=== PATIENT | female | born 1945 | race Caucasian/White ===

== ENCOUNTER 2018-09-04 20:22 | Inpatient (IN) | payer OTHER ==
[2018-09-04 20:56] LABS: PLATELET COUNT 245 10^3/uL (150-400)
[2018-09-04] MEDS ORDERED: ASPIRIN 81 MG CHEWABLE TAB PO ONE (21:02)
--- NOTE | 2018-09-04 21:05 | EDPHY ---
H & P Stated Complaint: chest pain Time Seen by Provider: 09/04/18 20:51 HPI/ROS: CHIEF COMPLAINT: Chest pain HISTORY OF PRESENT ILLNESS: 73-year-old female with history of CABG presents with chest pain. Onset of substernal chest pain at 8:00 p.m.. The pain lasted 30 min and then completely resolved. The pain radiated to the jaw and was similar to prior heart attack. No associated shortness of breath, diaphoresis or other symptoms. She recently stopped taking all of her medications. She did not take an aspirin today. REVIEW OF SYSTEMS: complete 10 point ROS reviewed and is negative except for the noted elements in the HPI - Personal History Current Tetanus/Diphtheria Vaccine: Yes Current Tetanus Diphtheria and Acellular Pertussis (TDAP): Yes - Medical/Surgical History Hx Asthma: No Hx Chronic Respiratory Disease: No Hx Diabetes: No Hx Cardiac Disease: Yes Hx Renal Disease: No Hx Cirrhosis: No Hx Alcoholism: No Hx HIV/AIDS: No Hx Splenectomy or Spleen Trauma: No Other PMH: bypass - Social History Smoking Status: Never smoked - Physical Exam Exam: General Appearance: Alert, pleasant Eyes: Pupils equal and round, no conjunctival pallor ENT, Mouth: Mucous membranes moist Neck: Normal inspection Respiratory: Lungs are clear to auscultation Cardiovascular: Regular rate and rhythm Gastrointestinal: Abdomen is soft and nontender Neurological: A&O, nonfocal, normal gait Skin: Warm and dry, no rash Extremities: Nontender, no pedal edema Psychiatric: Mood and affect normal Constitutional: Initial Vital Signs Temperature (C) 36.8 C 09/04/18 20:26 Heart Rate 77 09/04/18 20:26 Respiratory Rate 18 09/04/18 20:26 O2 Sat (%) 95 09/04/18 20:26 O2 Delivery Mode Room Air Allergies/Adverse Reactions: droperidol [From Inapsine] Allergy (Verified 09/04/18 20:44) Penicillins Allergy (Verified 09/04/18 20:44) Home Medications: Medication Instructions Recorded Losartan Potassium [Cozaar 25 mg 25 mg PO DAILY 09/04/18 (*)] Medical Decision Making - Diagnostics EKG Interpretation: EKG interpreted by me reveals normal sinus rhythm, rate 81, inferior Q-waves, poor R-wave progression, diffuse nonspecific T-wave changes. Interpretation: Abnormal EKG Imaging Results: Imaging Impressions Chest X-Ray 09/04/18 21:03 Impression: 1. Cardiomegaly. No acute failure or fluid overload. 2. Mild airways disease and minimal left basilar atelectasis/scarring. Imaging: I viewed and interpreted images myself ED Course/Re-evaluation: This patient presents with chest pain. Known history of coronary artery disease and prior CABG. Stat EKG reveals no evidence of ischemia or dysrhythmia and initial troponin is normal. She will require admission for further cardiac evaluation. The hospitalist service was consulted for admission. telemetry monitor revealed normal sinus rhythm throughout. I do not suspect alternative etiology. Differential Diagnosis: Differential diagnosis includes though it is not limited to pneumonia, pneumothorax, pulmonary embolism, aortic dissection, pericarditis, acute coronary syndrome. - Data Points Laboratory Results: Laboratory Results 09/04/18 20:35 09/04/18 20:35 09/04/18 09/04/18 09/04/18 20:42 20:35 20:35 WBC 7.11 10^3/uL 10^3/uL (3.80-9.50) RBC 4.78 10^6/uL 10^6/uL (4.18-5.33) Hgb 15.2 g/dL g/dL (12.6-16.3) Hct 44.7 % % (38.0-47.0) MCV 93.5 fL fL (81.5-99.8) MCH 31.8 pg pg (27.9-34.1) MCHC 34.0 g/dL g/dL (32.4-36.7) RDW 12.1 % % (11.5-15.2) Plt Count 245 10^3/uL 10^3/uL (150-400) MPV 11.7 fL fL (8.7-11.7) Neut % (Auto) 67.9 % % (39.3-74.2) Lymph % (Auto) 19.1 % % (15.0-45.0) [place] % (Auto) 7.2 % % (4.5-13.0) Eos % (Auto) 4.6 % % (0.6-7.6) Baso % (Auto) 0.8 % % (0.3-1.7) Nucleat RBC Rel Count 0.0 % % (0.0-0.2) Absolute Neuts (auto) 4.82 10^3/uL 10^3/uL (1.70-6.50) Absolute Lymphs (auto) 1.36 10^3/uL 10^3/uL (1.00-3.00) Absolute Monos (auto) 0.51 10^3/uL 10^3/uL (0.30-0.80) Absolute Eos (auto) 0.33 10^3/uL 10^3/uL (0.03-0.40) Absolute Basos (auto) 0.06 10^3/uL 10^3/uL (0.02-0.10) Absolute Nucleated RBC 0.00 10^3/uL 10^3/uL (0-0.01) Immature Gran % 0.4 % % (0.0-1.1) Immature Gran # 0.03 10^3/uL 10^3/uL (0.00-0.10) Sodium 137 mEq/L mEq/L (135-145) Potassium 4.2 mEq/L mEq/L (3.5-5.2) Chloride 103 mEq/L mEq/L (97-110) Carbon Dioxide 24 mEq/l mEq/l (22-31) Anion Gap 10 mEq/L mEq/L (6-14) BUN 20 mg/dL mg/dL (7-23) Creatinine 1.0 mg/dL mg/dL (0.6-1.0) Estimated GFR 55 Glucose 94 mg/dL mg/dL (70-100) Calcium 10.1 mg/dL mg/dL (8.5-10.4) Total Bilirubin 1.0 mg/dL mg/dL (0.1-1.4) AST 26 IU/L IU/L (14-46) ALT 34 IU/L IU/L (9-52) Alkaline Phosphatase 104 IU/L IU/L (38-126) POC Troponin I 0.00 ng/mL ng/mL (0.00-0.08) Total Protein 7.6 g/dL g/dL (6.3-8.2) Albumin 4.7 g/dL g/dL (3.5-5.0) Medications Given: Discontinued Medications Aspirin (Aspirin) 324 mg PO EDNOW ONE Stop: 09/04/18 21:03 Last Admin: 09/04/18 21:06 Dose: 324 mg Point of Care Test Results: Chemistry 09/04/18 20:42 POC Troponin I 0.00 ng/mL ng/mL (0.00-0.08) Departure - Departure Disposition: [facility] Inpatient Acute Clinical Impression: Chest pain Qualifiers: Chest pain type: precordial pain Qualified Code(s): R07.2 - Precordial pain Condition: Good
[2018-09-04] MEDS ORDERED: ONDANSETRON 4 MG/2 ML VIAL IVP PRN (23:11)
[2018-09-04] MEDS ORDERED: ACETAMINOPHEN 325 MG TAB PO PRN (23:11)
[2018-09-04] MEDS ORDERED: NITROGLYCERIN 0.4 MG BTL SL PRN (23:11)
--- NOTE | 2018-09-04 23:12 | PDGENHP ---
History and Physical - Chief Complaint chest pain - History of Present Illness 73yo F with history of CAD s/p CABG in 2016 presents with chest pain. She was at an iphone class at the mall when substernal chest pain developed. Associated with some shortness of breath but no diaphoresis or nausea or radiation of her pain. She was resting when pain began. Symptoms lasted 20-30 minutes and resolved spontaneously. This chest pain felt similar to episode in 2016 that prompted CABG so she decided to come to the ED. In the ED, initial ECG and troponin were negative for acute ischemia. Her BP was noted to be elevated at 188/101. She is currently chest pain free. She is being admitted for further evaluation and management. She has not followed up with a blue split trimmer. Her CABG was done in 2016 at [facility] in [place]. She has not had an ischemic eval since that time. She believes she had one [place] vessel that was stented and then had a CABG (unknown # of vessels as well). She does not take aspirin, plavix, or a statin. She has been dealing with a sinus infection/headaches for the last few weeks and been seeing an ENT at [facility]. They noted her BP was elevated and started her on losartan 3 -4 days ago which she has been taking. She denies using pseudoephedrine to treat her sinus symptoms. History Information - Allergies/Home Medication List Allergies/Adverse Reactions: droperidol [From Inapsine] Allergy (Verified 09/04/18 20:44) Penicillins Allergy (Verified 09/04/18 20:44) Home Medications: Losartan Potassium [Cozaar 25 mg (*)] 25 mg PO DAILY 09/04/18 [Last Taken Unknown] I have personally reviewed and updated: family history, medical history, social history, surgical history - Past Medical History Additional medical history: CAD s/p PCI and CABG in 2016, HTN, uterine fibroids - Surgical History Additional surgical history: CABG, uterine fibroid surgery - Family History Positive for: non-pertinent - Social History Smoking Status: Never smoked Alcohol Use: None Drug Use: None Additional social history: Lives with who is at bedside. Review of Systems Review of Systems: ROS: 10pt was reviewed & negative except for what was stated in HPI & below Physical Exam Physical Exam: Temp Pulse Resp BP Pulse Ox 36.9 C 71 16 198/114 H 96 09/04/18 22:15 09/04/18 22:15 09/04/18 22:15 09/04/18 22:15 09/04/18 22:15 Constitutional: no apparent distress, appears nourished, not in pain Eyes: PERRL, anicteric sclera, EOMI Ears, Nose, Mouth, Throat: moist mucous membranes, hearing normal, ears appear normal, no oral mucosal ulcers Cardiovascular: regular rate and rhythym, systolic murmur, No JVD, No edema Respiratory: no respiratory distress, no rales or rhonchi, clear to auscultation Gastrointestinal: normoactive bowel sounds, soft, non-tender abdomen, no palpable masses Genitourinary: no bladder fullness, no bladder tenderness Skin: warm, normal color, no rashes or abrasions, no fluctuance, no induration, No mottled Musculoskeletal: full muscle strength, no muscle tenderness, normal joint ROM, no joint effusions Neurologic: AAOx3 Psychiatric: interacting appropriately Lab Data & Imaging Review 09/04/18 20:35 09/04/18 20:35 WBC 7.11 10^3/uL (3.80-9.50) 09/04/18 20:35 RBC 4.78 10^6/uL (4.18-5.33) 09/04/18 20:35 Hgb 15.2 g/dL (12.6-16.3) 09/04/18 20:35 Hct 44.7 % (38.0-47.0) 09/04/18 20:35 MCV 93.5 fL (81.5-99.8) 09/04/18 20:35 MCH 31.8 pg (27.9-34.1) 09/04/18 20:35 MCHC 34.0 g/dL (32.4-36.7) 09/04/18 20:35 RDW 12.1 % (11.5-15.2) 09/04/18 20:35 Plt Count 245 10^3/uL (150-400) 09/04/18 20:35 MPV 11.7 fL (8.7-11.7) 09/04/18 20:35 Neut % (Auto) 67.9 % (39.3-74.2) 09/04/18 20:35 Lymph % (Auto) 19.1 % (15.0-45.0) 09/04/18 20:35 [place] % (Auto) 7.2 % (4.5-13.0) 09/04/18 20:35 Eos % (Auto) 4.6 % (0.6-7.6) 09/04/18 20:35 Baso % (Auto) 0.8 % (0.3-1.7) 09/04/18 20:35 Nucleat RBC Rel Count 0.0 % (0.0-0.2) 09/04/18 20:35 Absolute Neuts (auto) 4.82 10^3/uL (1.70-6.50) 09/04/18 20:35 Absolute Lymphs (auto) 1.36 10^3/uL (1.00-3.00) 09/04/18 20:35 Absolute Monos (auto) 0.51 10^3/uL (0.30-0.80) 09/04/18 20:35 Absolute Eos (auto) 0.33 10^3/uL (0.03-0.40) 09/04/18 20:35 Absolute Basos (auto) 0.06 10^3/uL (0.02-0.10) 09/04/18 20:35 Absolute Nucleated RBC 0.00 10^3/uL (0-0.01) 09/04/18 20:35 Immature Gran % 0.4 % (0.0-1.1) 09/04/18 20:35 Immature Gran # 0.03 10^3/uL (0.00-0.10) 09/04/18 20:35 Sodium 137 mEq/L (135-145) 09/04/18 20:35 Potassium 4.2 mEq/L (3.5-5.2) 09/04/18 20:35 Chloride 103 mEq/L (97-110) 09/04/18 20:35 Carbon Dioxide 24 mEq/l (22-31) 09/04/18 20:35 Anion Gap 10 mEq/L (6-14) 09/04/18 20:35 BUN 20 mg/dL (7-23) 09/04/18 20:35 Creatinine 1.0 mg/dL (0.6-1.0) 09/04/18 20:35 Estimated GFR 55 09/04/18 20:35 Glucose 94 mg/dL (70-100) 09/04/18 20:35 Calcium 10.1 mg/dL (8.5-10.4) 09/04/18 20:35 Total Bilirubin 1.0 mg/dL (0.1-1.4) 09/04/18 20:35 AST 26 IU/L (14-46) 09/04/18 20:35 ALT 34 IU/L (9-52) 09/04/18 20:35 Alkaline Phosphatase 104 IU/L (38-126) 09/04/18 20:35 POC Troponin I 0.00 ng/mL (0.00-0.08) 09/04/18 20:42 Total Protein 7.6 g/dL (6.3-8.2) 09/04/18 20:35 Albumin 4.7 g/dL (3.5-5.0) 09/04/18 20:35 Interpretation: CXR: cardiomegaly, sternotomy wires in place, no pulmonary edema or infiltrate, no effusion (interp by me) EKG additional interpertation: ECG: NSR, LVH (by criteria in aVL), early R wave progression, inferior Q waves, no ischemic ST-T segment changes, no prior for comparison (interp by me) Assessment & Plan Assessment: 73yo F with history of CAD s/p CABG in 2016 presents with chest pain. Plan: #Chest pain: Her story is concerning. Initial ecg/troponin negative for ischemia. She has not been adherent to any medical therapies for her CAD. Her pain could certainly be related to her elevated BP as well. - Serial trop/ecg - Telemetry - TTE ordered - Consult cardiology in AM to discuss ischemic evaluation - If develops worsening chest pain or rising troponin overnight, would start heparin gtt #Severe untreated hypertension: Recently started on ARB as outpatient. - Start coreg 6.25mg BID tonight, resume losartan in AM - Goal SBP<160 overnight. Hydralazine IV ordered PRN #CAD s/p CABG: Performed at [facility] in 2016. - Start aspirin 81, atorva 40, beta june as above. Obtain records in AM #Sensorineural hearing loss, vertigo, chronic rhinitis: Being worked up by ENT at [facility]. VTE ppx: SCDs Code: full Diet: NPO at midnight Dispo: Admit under observation
[2018-09-05] MEDS ORDERED: LABETALOL HCL 5 MG/ML 20 ML MDV IVP PRN (00:19)
[2018-09-05] MEDS ORDERED: hydrALAZINE 20 MG/ML VIAL IVP PRN (00:26)
[2018-09-05] MEDS: CARVEDILOL 6.25 MG TAB PO SCH ×3 (00:57→17:30)
[2018-09-05] MEDS: LOSARTAN POTASSIUM 25 MG TAB PO SCH ×2 (12:25→16:04)
[2018-09-05] MEDS: ASPIRIN 81 MG CHEWABLE TAB PO SCH (12:26)
[2018-09-05] MEDS ORDERED: IOPAMIDOL (ISOVUE 370) 100 ML BTL IV ONE (12:27)
--- NOTE | 2018-09-05 12:50 | ASMTCMCOM ---
CM Note CM Note Notes: 09/05/2018 Case Management Note Discussed pt during rounds this morning. Pt admitted for chest pain. Irvin [phone] present. Met w/pt to discuss discharge needs. There are no therapy evals ordered today. Pt lives independently with her in her own home. Pt had CABG 2015. Pt did not have homecare, SNF rehab or cardiac rehab after surgery. Pt reports she has Medicare insurance but does not have copy of card with her. PCP is Dr. Lissy Carrillo at [facility]. Pt has an appointment scheduled in October. Case Management d/c poc: anticipating independent with follow up as directed. Case Management available if needs change. Date Signed: 09/05/2018 12:50 PM Electronically Signed By:Candy Montes RN
[2018-09-05] MEDS ORDERED: REGADENOSON 0.4 MG/5 ML SYR IVP ONE (13:34)
--- NOTE | 2018-09-05 14:33 | ECHO ---
[email or web address] [address] Main: [phone] Echocardiography Examination Transthoracic Name: HUGO BENSON MR#: [id number] Study Date: 09/05/2018 Study Time: 09:59 AM Date of : 1945 Age: 73 year(s) Height: 167.6 cm (66 in.) Weight: 78.93 kg (174 lb.) BSA: 1.88 m2 Gender: Female Examination: Echo Contrast: Image Quality: Adequate parasternal window, technically Rhythm: difficult apical window. Heart Rate: BP: 135 mmHg/89 mmHg Indication: Evsl ventricular function, valves Procedure Staff Referring Physician: Tsa Screener: Arminda Guillen [facility] Reading Physician: Danay Carty MD Requesting Provider: Ordering Physician: Quique Church Indication: Evsl ventricular function, valves Measurements Chambers AV/MV Label Value Normal Value Label Value Normal Value LVOTd 2 cm (1.8cm - 2cm) AV PGmax 4 mmHg LVOT VTI 17.1 cm (18cm - 22cm) AV PGmean 3 mmHg LVDd, 2D 4.9 cm (3.9cm - 5.3cm) AV Vmax 1.04 m/s LVDs, 2D 3.6 cm (2.1cm - 4cm) JOHN (VTI) 2.2 cm2 IVSd, 2D 1.4 cm (0.6cm - 1.1cm) MV E Vmax 0.72 m/s LVPWd, 2D 1.3 cm MV A Vmax 0.94 m/s LVEF, 2D 52 % (54% - 74%) MV E/A 0.77 LVOT PGmean 2 mmHg MV E/E' lateral 9.9 LVOT Vmean 0.58 m/s MV E/E' septal 10.1 (0.45 - 1.25) RVDd, 2D 3.3 cm (1.9cm - 3.8cm) MV DT 289 ms LA Volume, BP 55 ml (22ml - 52ml) MV E' septal 0.07 m/s LADs, 2D 4.2 cm (2.7cm - 3.8cm) MV PHT 0.08 s LAESV index, BP 29.3 ml/m2 MVA PHT 2.7 cm2 Additional Vessels MV E' lateral 0.07 m/s Label Value Normal Value MV E/E' mean 10.29 AoAsc 3.4 cm MV PHT 83 ms AoRoot, 2D 3.3 cm (1.4cm - 2.6cm) MV E' mean 0.07 m/s TV/PV Patient: HUGO BENSON Study Date: 09/05/2018 Page 1 of 3 09:59 AM Label Value Normal Value RA Pressure 5 mmHg RVSP 29 mmHg TR Pmax 24 mmHg TR Vmax 2.46 m/s PV PGmax 2 mmHg PV Vmax, Caliper 0.77 m/s (0.6m/s - 0.9m/s) Conclusions 1. The left ventricle is normal in size. Moderate concentric LVH. Overall normal LV systolic function with an ejection fraction of 55-60%. No regional wall motion abnormalities. 2. The right ventricle is normal in size and systolic function. 3. [id number]-[id number] mitral regurgitation. 4. Mild tricuspid regurgitation with normal estimated pulmonary systolic pressure. 5. No previous echo Findings Left Ventricle: Left ventricle is normal in size. Normal global systolic left ventricular function. The ejection fraction, measured by MOD4, is 56 %. EF range is estimated at 55 % - 60 %. There is moderate concentric left ventricular hypertrophy. There are no regional wall motion abnormalities. Left ventricular hypertrophy is noted. Right Ventricle: Normal size right ventricle. Right ventricular systolic function is normal. Left Atrium: The left atrium is normal in size. Right Atrium: The right atrium is normal in size. Mitral Valve: Mitral valve appears structurally normal. Mild to moderate mitral regurgitation. No mitral valve stenosis. There is mild mitral annular calcification. Aortic Valve: Aortic leaflets are structurally normal. No significant aortic valve regurgitation. There is no aortic stenosis. Tricuspid Valve: Tricuspid valve leaflets are structurally normal. Mild tricuspid regurgitation. No tricuspid valve stenosis. Right Ventricular systolic pressure is measured at 29 mmHg. Pulmonary artery pressure normal. Pulmonic Valve: Pulmonic leaflets are normal in appearance. Aorta: The aortic root size in 2D measures 3.3 cm. The ascending aorta measures 3.4 cm. Aorta Measurements AoRoot, 2D is 3.3 cm. Pericardium: A pericardial fat pad is present. No pericardial effusion. Exam Details Procedure Ordered: Echo Procedure Components: Complete 2D imaging Procedure Status: Routine study Image Quality: Adequate parasternal window, technically difficult apical window. Facility Location: Bedside Patient: HUGO BENSON Study Date: 09/05/2018 Page 2 of 3 09:59 AM (No Signature Object) Patient: HUGO BENSON Study Date: 09/05/2018 Page 3 of 3 09:59 AM [id number]
--- NOTE | 2018-09-05 14:58 | CPR ---
[f rep st] NONINVASIVE CARDIAC PROCEDURE REPORT DATE OF PROCEDURE: 09/05/2018 PROCEDURE: Lexiscan nuclear stress test. ORDERING PHYSICIAN: Clementine Saxena, nurse practitioner. REASON FOR TEST: 1. Chest pain. 2. Known coronary artery disease. 3. History of coronary artery bypass surgery. Resting EKG shows a regular sinus rhythm with a ventricular rate of 61. Anterior Q waves noted. Res ting blood pressure 132/94, oxygen saturation 94%. EKG shows no ischemic changes. STRESS PORTION: This is a Lexiscan nuclear stress test. Lexiscan was injected rapidly, followed by saline flush. Cardiolite was then injected, followed by saline flush. There were no EKG changes. S he did become short of breath. Oxygen saturation 93%. Peak blood pressure was 148/96. Peak heart r ate 89. RECOVERY: She did spontaneously recover. Her shortness of breath subsided spontaneously. Recovery blood pressure 158/98, oxygen saturation 97%, heart rate 80. EKG remained stable throughout. At thi s time, she is stable for imaging. /[id number]/MODL
--- NOTE | 2018-09-05 14:58 | GHP ---
[f rep st] HISTORY AND PHYSICAL DATE OF ADMISSION: 09/04/2018 ADMITTING DIAGNOSIS: Chest discomfort. HISTORY OF PRESENT ILLNESS: This is a 73-year-old female with a history of coronary artery disease, status post CABG in 2016. She was at a class and developed substernal chest discomfort yesterday. S he had noted some shortness of breath with no nausea, vomiting, or diaphoresis. The symptoms lasted approximately 30 minutes and then resolved. She reports that this was a similar chest pain that she had experienced in 2016 prior to her bypass surgery. Upon arrival to the emergency room, her EKG and troponin were negative. She did have an elevated blood pressure at 188/101. At time of my visit, s he is chest pain free. She is complaining of some left arm numbness that radiates into her face. Sameer elena reports that she has had this intermittently since the time of her bypass surgery. Her bypass was done at [facility] in [place]. She has not followed up with a marketing and outreach coordinator due to no insur ance or Medicare coverage. Most recently, she did develop a sinus infection, which resulted in heada ches, and was seen by an ENT at [facility]. At that time, her blood pressure was noted to be quite el evated and she was started on losartan. At the time of my visit, she has no chest pain. Her main co ncern is the numbness in her left arm that radiates into her face. ALLERGIES: To droperidol and penicillin. HOME MEDICATIONS: Losartan 25 mg daily. HOSPITAL MEDICATIONS: Currently Tylenol 650 mg every 6 hours as needed, aspirin 81 mg daily, Lipitor 40 mg daily, Coreg 6.25 mg twice daily, Apresoline 10 mg IV push every 6 hours as needed for systoli c blood pressure elevations, Cozaar 25 mg daily, morphine 1-2 mg IV push as needed for pain, nitrogly cerin 0.4 mg sublingual every 5 minutes as needed for chest pain, Zofran as needed for nausea or vomi ting. PAST MEDICAL HISTORY: 1. Coronary artery disease, status post PCI and CABG in 2016. 2. Hypertension. 3. Uterine fibroids. PAST SURGICAL HISTORY: 1. CABG. 2. Uterine fibroid surgery. FAMILY HISTORY: Coronary artery disease. SOCIAL HISTORY: She does not use tobacco, alcohol, or illicit drugs. She lives in her home with her . REVIEW OF SYSTEMS: Ten-point review of systems negative except that stated in the HPI. PHYSICAL EXAMINATION: VITAL SIGNS: Blood pressure 135/89, heart rate 63, respirations 12, pulse oxi metry 96%. CONSTITUTIONAL: No apparent distress. She denies pain. EYES: PERRL. EARS, NOSE, THROAT, and MOUTH: Mucous membranes moist. No difficulty hearing. CARDIOVASCULAR: Hea rt rate is regular with a regular rhythm, 2/6 systolic murmur. No edema. RESPIRATORY: No rales or rhonchi. LUNGS: Clear to auscultation. GASTROINTESTINAL: Bowel sounds are normal in all four quad rants. ABDOMEN: Soft and nontender. No masses palpated. GENITOURINARY: No bladder tenderness or fullness. SKIN: Warm. Color pink. No rashes. No mottling. MUSCULOSKELETAL: Full muscle strengt h. Normal joint range of motion. NEUROLOGIC: Alert and oriented x3. PSYCHIATRIC: Interacts and c onverses appropriately. INVESTIGATIONS: Chest x-ray shows: 1. Cardiomegaly. No fluid overload. 2. Mild airway disease and minimal left basilar atelectasis. Electrocardiogram shows a regular sinus rhythm with a rate of 81, QTc 450, LVH, probable old inferior infarct, anterior Q waves are present. LABORATORY: White blood count 7.11, hemoglobin 15.2, hematocrit 44.7, platelets 245. Chemistry on a dmission, 09/04/2018: Sodium 137, potassium 4.2, creatinine 1.0, BUN 20, GFR 55, AST 26, ALT 34, tro ponin #1 of 0, troponin #2 and #3 of 0.012. BNP 230. Lipids: Total cholesterol 233, triglycerides 173, HDL 42, LDL 157. IMPRESSION AND PLAN: 1. Chest pain. This resolved after 30 minutes the afternoon prior to admission. She denies continu ed chest pain. Her troponins have been negative. She did describe the chest pain as similar to prio r to her coronary artery bypass surgery in 2016. To further evaluate, she is agreeable to having a L exiscan nuclear stress test. This will be done yet today. 2. Hypertension. Her blood pressure has been well managed on current medications. Will continue to watch closely. Prior to admission, her blood pressures were reported to be quite elevated. We will encourage her to monitor her blood pressures closely as an outpatient. 3. Left arm and facial numbness. This will be further evaluated by the hospitalist team. At this time, she currently is stable. We will continue to follow along closely. Thank you for asking us to be a part of this nice lady's care. /[id number]/MODL
[2018-09-05] MEDS: ATORVASTATIN CALCIUM 40 MG TAB PO SCH (17:28)
--- NOTE | 2018-09-05 21:40 | HOSPPROG ---
Hospitalist Progress Note Assessment/Plan: * Chest pain -lexiscan stress test negative * Possible TIA -transient LUE numb/weak after 1st dose coreg -ASA/statin -CTA head/neck negative * HTN -on losartan -add low dose metoprolol instead of coreg * Hyperlipidemia -statin started * CAD/CABG Subjective: Immediately after taking 1st dose coreg got left arm numb>weak Objective: Vital Signs Temp Pulse Resp BP Pulse Ox 36.4 C 83 18 144/108 H 96 09/05/18 15:18 09/05/18 15:18 09/05/18 15:18 09/05/18 15:18 09/05/18 15:18 09/04/18 09/05/18 09/06/18 05:59 05:59 05:59 Intake Total 600 200 Balance 600 200 CTA head/neck - negative CT reviewed with Dr. Martinez ECHO - negative Laboratory Tests 09/05/18 09/05/18 05:28 11:43 Troponin I < 0.012 Cholesterol 233 H LDL Cholesterol, Calc 157 H HDL Cholesterol 42 - Physical Exam Constitutional: no apparent distress, appears nourished, not in pain Cardiovascular: regular rate and rhythym, no murmur, rub, or gallop Respiratory: no respiratory distress, no rales or rhonchi, clear to auscultation Gastrointestinal: normoactive bowel sounds, soft, non-tender abdomen, no palpable masses Skin: no rashes or abrasions, no fluctuance, no induration Neurologic: AAOx3, sensation intact bilaterally Psychiatric: interacting appropriately, not anxious, not encephalopathic, thought process linear ICD10 Worksheet Patient Problems: Problems Problem Status Onset Chest pain Acute
[2018-09-06 07:50] VITALS: BP 140/78
[2018-09-06] MEDS ORDERED: LISINOPRIL 10 MG TAB PO SCH (09:00)
[2018-09-06] MEDS ORDERED: METOPROLOL SUCCINATE XR 25 MG TAB PO SCH (09:00)
[2018-09-06] MEDS: LOSARTAN POTASSIUM 25 MG TAB PO SCH (09:35)
--- NOTE | 2018-09-06 09:42 | PDCARPN ---
Cardiology Progress Note Chief Complaint: chest pain left arm numbness Assessment/Plan: Assessment: CAD:She is a history of CABG. She is now on Metoprolol, Lisinopril, and Lipitor. She was switched from Coreg to Metoprolol due to her left arm numbness after taking the first dose of Coreg. She will need close monitoring of new start on Statin. She will now maintain follow ups with Cardiology going forward, as she had not seen Cardiology since her CABG several years prior. Chest pain. Nuc was negative for ischemia. She has no chest pain today. She report feeling better today than she has in a long time. Left Arm and side Numbness; CT scans negative. Plan:She will follow up with Cardiology in 7 to 10 days. 09/06/18 09:40 09/06/18 12:36 Reviewed/Discussed With: family, hospitalist (Kandy Melgar MD), multidisciplinary team Time Spent with Patient: greater than 25 minutes Time Spent with Patient: Greater than 25 minutes spent on this patients care, greater than 50% of time spent counseling, educating, and coordinating care regarding the above mentioned plan. Objective: Vital Signs (8 Hrs) Temp Pulse Resp BP Pulse Ox 09/06/18 07:48 36.3 C 71 20 140/78 H 95 09/06/18 04:00 36.7 C 74 16 113/67 95 Intake/Output (24 Hrs) 09/05/18 09/06/18 09/07/18 05:59 05:59 05:59 Intake Total 600 650 Balance 600 650 Intake: Oral (ml) 600 650 Other: Weight 79.2 kg Number of Voids Toilet 1 1 Number of Stools Toilet 1 Result Diagrams: 09/04/18 20:35 09/04/18 20:35 Cardiac Labs: Cardiac Lab Results (72 Hrs) 09/05/18 09/05/18 11:43 05:28 Troponin I < 0.012 < 0.012 - Physical Exam Constitutional: no apparent distress Cardiovascular: regular rate and rhythm, no murmurs, no rubs Respiratory: clear to auscultate bilat, no crackles, no wheezes Skin: warm, no edema Neurologic: AAOx3 Psychiatric: cooperative, interactive ICD10 Worksheet Patient Problems: Problems Problem Status Onset Chest pain Acute
[2018-09-06] MEDS ORDERED: FLUCONAZOLE 150 MG TAB PO ONE (10:27)
[2018-09-06] MEDS: ATORVASTATIN CALCIUM 40 MG TAB PO SCH (10:33)
--- NOTE | 2018-09-06 10:37 | PDMN ---
Medical Necessity Medical necessity: Change to IP, as of 09/05/18, per & MCG M-89; los >2 mn for eval/tx of chest pain w/possible TIA; pt experienced LUE numbness/weakness after taking first dose of Coreg; requiring further workup/monitoring; comorbid advanced age, CAD, CABG
--- NOTE | 2018-09-06 11:08 | ASDISCHSUM ---
Discharge Information Plan Status:Home with No Needs Medically Cleared to Leave:09/06/2018 Discharge Date:09/06/2018 CM D/C Disposition:Home, Routine, Self-Care ADT D/C Disposition:Home, Routine, Self-Care Projected Discharge Date:09/06/2018 Transportation at D/C:Family Discharge Delay Reason: Follow-Up Date:09/06/2018 Discharge Slot: Final Diagnosis: Placement Information Patient Contact Information Contact Name:IDA Relationship:Roxane Address:[address] [address] Work Phone: City:[place] Alternate Phone: [facility]/Zip Code:[place] [address] Email: Financial Information Financial Class:Medicare Primary Plan Desc:MEDICARE OUTPATIENT Primary Plan Number:[id number] Secondary Plan Desc: Secondary Plan Number: Assessment Information LACE LACE Length of stay for Answers: Less than 1 day current admission Acuity / Level of Answers: Yes Care: Did the patient have an inpatient admission? Comorbidities - select Answers: Coronary Artery Disease all that apply Opioid dependence / Chronic pain Other Notes: HTN # of Emergency department Answers: 1-2 visits in the last 6 months Score: 11 Date Signed: 09/06/2018 11:05 AM Electronically Signed By:Candy Montes RN [facility] Progress Note CM Note CM Note Notes: 09/05/2018 Case Management Note Discussed pt during rounds this morning. Pt admitted for chest pain. Irvin [phone] present. Met w/pt to discuss discharge needs. There are no therapy evals ordered today. Pt lives independently with her in her own home. Pt had CABG 2015. Pt did not have homecare, SNF rehab or cardiac rehab after surgery. Pt reports she has Medicare insurance but does not have copy of card with her. PCP is Dr. Lissy Carrillo at [facility] on the [facility]. Pt has an appointment scheduled in October. Case Management d/c poc: anticipating independent with follow up as directed. Case Management available if needs change. Date Signed: 09/05/2018 12:50 PM Electronically Signed By:Candy Montes RN Case Management Discharge Plan Note Case Management Discharge Discharge Order Complete? Answers: Yes Patient to Obtain Answers: Independently Medications Transportation Arranged Answers: Family/Friends Discharge Comments Notes: 09/06/2018 Case Management Note Pt to discharge independent with follow up as directed. Date Signed: 09/06/2018 11:07 AM Electronically Signed By:Candy Montes RN Intervention Information
[2018-09-06] MEDS: ASPIRIN 81 MG CHEWABLE TAB PO SCH (11:12)
--- NOTE | 2018-09-06 11:20 | GCON ---
[f rep st] CONSULTATION NEUROLOGY CONSULT DATE OF CONSULTATION: 09/06/2018 REFERRING PHYSICIAN: Reva Melgar MD CHIEF COMPLAINT: Left arm numbness, transient. HISTORY OF PRESENT ILLNESS: The patient is a very pleasant 73-year-old lady who was admitted for chest pain evaluation. In the course of this hospitalization and comprehensive cardiac evaluation, she was given her first dose of Coreg, and around 20 minutes later, she felt numbness in her left arm. She had a stat head CT without contrast and a CT-A of the head and neck. The noncontrast head CT showed no acute findings and some old lacunar type changes. There is some microvascular ischemic gliosis as well. CT-A of the head and neck, along with attention to the left upper extremity showed a widely patent left subclavian artery. No subclavian stenosis. She has widely patent carotid and vertebral arteries. She has some carotid plaque at the carotid bulbs bilaterally, less than 30%. In addition, angiography of the head shows widely patent intracranial arteries. She has had resolution of her numbness. REVIEW OF SYSTEMS: A 10-point review of systems was done only pertinent to the HPI. PAST MEDICAL HISTORY/SOCIAL HISTORY/FAMILY HISTORY/HOME MEDICATIONS/ALLERGIES: See Dr. Church's H and P dated 09/04/2018. PHYSICAL EXAMINATION: VITAL SIGNS: Today is 113/67, temperature 36.3, heart rate 70s. GENERAL: The patient is very pleasant, awake, alert, in no acute distress. NEUROLOGIC: She is lucid. No aphasia. Cranial nerve exam is normal 2 through 7, and 12. Motor exam reveals no focal weakness in her extremities. Sensory exam is normal to light touch in all 4 extremities. Coordination is normal in upper and lower extremities. IMPRESSION/PLAN: 1. Transient neurologic symptoms, resolved. The patient may have had a transient dip in her blood pressure causing perfusion related symptoms, not entirely clear because she did not tell the nurse about these symptoms till 3 or 4 hours after symptom onset. Therefore, we did not obtain a blood pressure when she was actually symptomatic. The symptoms have resolved. She is on a different regimen of antihypertensive medication now. Extensive neurovascular evaluation shows no large vessel occlusion or hemorrhage. The patient is on statin therapy, along with antiplatelet therapy for vascular prophylaxis. No further recommendations now. Please do not hesitate to call if there are any questions or changes in neurologic status with this very pleasant patient. I understand she will likely discharge later today; therefore, we will sign off and follow up as needed. Seventy total minutes of floor time; over 50% in counseling and coordination of care. /[id number]/MODL MTDD
--- NOTE | 2018-09-06 12:30 | PDIAF ---
- Diagnosis Diagnosis: CAD, HTN Code Status: Full Code - Medication Management Discharge Medications: electronically signed and located in the Home Medication List. - Orders Services needed: Home Care, Registered Nurse, Physical Therapy, Occupational Therapy Home Care Face to Face: I certify that this patient was under my care and that I had the required [id number] encounter meeting the encounter requirements on the discharge day. My findings support the fact that the patient is homebound as defined in Home Care Face to Face Continued: CMS Chapter 7 Medicare Benefits Manual 30.1.1 , The condition of the patient is such that there exists a normal inability to leave home and consequently, leaving home would require a considerable and taxing effort. Diet Recommendation: cardiac -low fat low salt Diet Texture: Regular Texture Diet - Follow Up Care Current Providers and Referrals: Clementine Saxena CNP [Certified Nurse Practioner] - 09/12/18 1:45 pm Moni Washburn NP [Certified Nurse Practioner] - NONE *PRIMARY CARE P,. [Primary Care Provider] - As per Instructions
--- NOTE | 2018-09-06 19:06 | GDS ---
[f rep st] DISCHARGE SUMMARY DISCHARGE DIAGNOSES: 1. Chest pain. 2. Possible transient ischemic attack. 3. Hypertension. 4. Coronary artery disease, status post coronary artery bypass graft. 5. Hyperlipidemia. HISTORY: The patient is a 73-year-old female who had a CABG a couple years ago at [facility]. She did not have any followup and is no longer taking any medications. She presented to the [facility] with an episode of chest pain. Her high blood pressure was uncontrolled. She recently restart ed losartan. She was admitted for serial troponins and EKGs that were negative. She had a Lexiscan stress test that was negative. Initiating antihypertensive medications during this hospitalization. She was prescribed a dose of [place] reg. Immediately after taking the Coreg, she developed a left-sided weakness, predominantly in the l eft upper extremity. She had a CT angiogram of the head and neck that was negative. Her echo was un remarkable. These symptoms resolved spontaneously. She was seen in consultation with Neurology. ulices will be restarting aspirin and statin drug for coronary disease and will cover possible TIA as well . She refuses any further beta-blockers due to side effects. DISCHARGE MEDICATIONS: Please see computerized record for full detailed list. NEW MEDICATIONS 1. Aspirin 81 mg p.o. daily. 2. Lipitor 40 mg p.o. daily. ADDITIONAL DISCHARGE INSTRUCTIONS: 1. Follow up with Clementine Saxena for cardiology appointment made. 2. Patient was given a referral to Primary Care. Greater than 30 minutes' time spent arranging this discharge. Patient was seen and examined by me on day of discharge. /[id number]/MODL
--- NOTE | 2018-09-07 09:03 | ASMTCMCOM ---
CM Note CM Note Notes: Addendum note: Met w/pt to discuss MD order for home care. Pt declined d/t home bound requirement. Pt discharged independent with follow up as directed. Date Signed: 09/07/2018 09:02 AM Electronically Signed By:Candy Montes RN
== END 2018-09-06 14:24 | disposition home or self-care (01) | DRG 313 ==
LOC: F2W 22:43 → OBSVTOIN 09-05 21:34
PROVIDERS: ADMIT Internal Medicine; ATTEND Internal Medicine
DX: R07.9 Chest pain, unspecified (principal); G45.9 Transient cerebral ischemic attack, unspecified; I10 Essential (primary) hypertension; I25.10 Atherosclerotic heart disease of native coronary artery without angina pectoris; E78.5 Hyperlipidemia, unspecified; H90.5 Unspecified sensorineural hearing loss; J31.0 Chronic rhinitis; Z95.1 Presence of aortocoronary bypass graft
CPT/HCPCS: 84484-ER; 92523-GN; 97116-GP; 97161-GP; 97165-GO; A9500; G0378; J2785; Q9967